=== PATIENT | male | born 1985 | race Caucasian/White ===

== ENCOUNTER 2017-07-05 08:49 | Emergency (ER) | payer OTHER ==
--- NOTE | 2017-07-05 10:37 | ED Physician Documentation ---
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 He did have a reaction at the site of the vaccination with necrosis of the skin consistent with the vaccination working. He was evaluated for that. He has been taking some ibuprofen and this morning he had an episode of chest pain that lasted about 15-20 minutes. He describes the pain is in the central chest not radiating and is now resolved. He is worried that this may be related to his taking of the ibuprofen. He is taking ibuprofen for generalized aches and pains related to this vaccination reaction. Review of Systems Constitutional: reports: Myalgias, Fatigue. denies: Fever Eyes: denies: Decreased vision Ears: denies: Ear pain Nose: denies: Rhinorrhea / runny nose, Congestion Throat: denies: Sore throat Cardiac: reports: Chest pain / pressure. denies: Palpitations, Pedal edema, Calf pain Respiratory: denies: Dyspnea, Cough, Wheezing GI: reports: Diarrhea. denies: Abdominal Pain, Nausea, Vomiting : denies: Dysuria, Frequency Skin: reports: Rash Musculoskeletal: denies: Neck pain, Back pain PD ED PE NORMAL - Vitals Vital signs reviewed: Yes (Hypertensive) - General General: Alert and oriented X 3, No acute distress, Well developed/nourished - HEENT HEENT: Atraumatic, PERRL, EOMI - Neck Neck: Supple, no meningeal sign, No bony TTP - Cardiac Cardiac: RRR, No murmur, No gallop, No rub - Respiratory Respiratory: No respiratory distress, Clear bilaterally - Abdomen Abdomen: Soft, Non tender - Back Back: No CVA TTP, No spinal TTP - Derm Derm: Normal color, Warm and dry, No rash - Extremities Extremities: No deformity, No edema, Other (The injection site has a 2cm round area of superficial tissue necrosis. ) - Neuro Neuro: Alert and oriented X 3, No motor deficit, No sensory deficit, Normal speech Eye Opening: Spontaneous Motor: Obeys Commands Verbal: Oriented GCS Score: 15 - Psych Psych: Normal mood, Normal affect Results - Vitals Vitals: Vital Signs - 24 hr 07/05/17 07/05/17 07/05/17 08:55 10:41 12:44 Temperature 36.6 C Heart Rate 72 65 63 Respiratory 18 22 23 Rate Blood Pressure 136/96 H 120/84 H 126/78 O2 Saturation 100 98 97 07/05/17 07/05/17 14:08 14:10 Temperature Heart Rate 73 62 Respiratory 20 18 Rate Blood Pressure 130/87 H 126/85 H O2 Saturation 99 98 Oxygen O2 Source Room air - EKG (time done) 0859 Rate: Rate (enter#) (72) Rhythm: NSR Ischemia: Normal ST segments Compare to prior EKG: Old EKG unavailable Computer interpretation: Agree with computer - Labs Labs: Laboratory Tests 07/05/17 07/05/17 07/05/17 11:05 11:05 11:05 WBC 8.3 RBC 5.57 Hgb 15.9 Hct 46.0 MCV 82.6 MCH 28.6 MCHC 34.6 RDW 13.4 Plt Count 120 L MPV 7.3 L Neut # 6.1 Lymph # 1.2 L [place] # 0.8 Eos # 0.1 Baso # 0.1 Absolute Nucleated RBC 0.01 Nucleated RBC % 0.2 Sodium 141 Potassium 3.8 Chloride 105 Carbon Dioxide 26 Anion Gap 10.0 BUN 12 Creatinine 0.8 Estimated GFR (MDRD) 114 Glucose 94 Calcium 9.1 Total Bilirubin 1.1 H AST 45 H ALT 19 Alkaline Phosphatase 87 Total Creatine Kinase 394 H CK-MB (CK-2) 33.7 H Troponin I 3.01 H* Total Protein 6.9 Albumin 4.0 Globulin 2.9 Albumin/Globulin Ratio 1.4 Lipase 10 L PD MEDICAL DECISION MAKING - ED course Complexity details: reviewed results, re-evaluated patient, considered differential, d/w patient ED course: 31-year-old male with a reaction to smallpox vaccination which appears to include acute myocarditis. The smallpox vaccination is a live virus vaccination and this is considered a viral myocarditis. Dr. Sanchez the on-call foster parent at [facility] has graciously agreed to accept the patient in transfer. Departure - Departure Disposition: 02 Transfer Acute Care Hosp Clinical Impression: Myocarditis Qualifiers: Myocarditis type: infective Infective myocarditis organism: viral Chronicity: acute Qualified Code(s): I40.0 - Infective myocarditis Condition: Stable Comments: Today in the Emergency Department your blood pressure was elevated. This can happen from the stress of the visit itself, from a current illness or circumstance or from uncontrolled hypertension. If you take blood pressure medications take your usual mediations, have your blood pressure re-checked in an appropriate setting and follow up any elevation with your primary care doctor. Discharge Date/Time: 07/05/17 14:17
[2017-07-05 11:12] LABS: BASOPHILS # (AUTO) 0.1 10^3/uL (0.0-0.1); BASOPHILS % (AUTO) 0.7 %; EOSINOPHILS # (AUTO) 0.1 10^3/uL (0.0-0.7); EOSINOPHILS % (AUTO) 1.7 %; HGB - HEMOGLOBIN 15.9 g/dL (14.0-18.0); LYMPHOCYTES # (AUTO) 1.2 10^3/uL (1.5-3.5); LYMPHOCYTES % (AUTO) 14.2 %; MEAN CORPUSCULAR HEMOGLOBIN 28.6 pg (27.0-31.0); MEAN CORPUSCULAR HGB CONC 34.6 g/dL (32.0-36.0); MEAN CORPUSCULAR VOLUME 82.6 fL (80.0-94.0); MEAN PLATELET VOLUME 7.3 fL (7.4-11.4); MONOCYTES # (AUTO) 0.8 10^3/uL (0.0-1.0); MONOCYTES % (AUTO) 9.9 %; NEUTROPHILS # (AUTO) 6.1 10^3/uL (1.5-6.6); NEUTROPHILS % (AUTO) 73.5 %; NUCLEATED RED BLOOD CELLS AUTO 0.2 /100WBC; RED BLOOD COUNT 5.57 10^6/uL (4.70-6.10); RED CELL DISTRIBUTION WIDTH 13.4 % (12.0-15.0); UNCORRECTED WHITE BLOOD COUNT 8.3 x10^3/uL; WHITE BLOOD COUNT 8.3 x10^3/uL (4.8-10.8)
[2017-07-05 11:24] LABS: ALBUMIN/GLOBULIN RATIO 1.4 (1.0-2.2); BILIRUBIN,TOTAL 1.1 mg/dL (0.2-1.0); CALCIUM 9.1 mg/dL (8.5-10.3); CREATININE 0.8 mg/dL (0.6-1.2); POTASSIUM 3.8 mmol/L (3.5-5.0); TOTAL PROTEIN 6.9 g/dL (6.7-8.2)
[2017-07-05 11:31] LABS: CREATINE KINASE MB 33.7 ng/mL (0.6-6.3)
[2017-07-05 11:33] LABS: TROPONIN I 3.01 ng/mL (<0.49)
[2017-07-05 14:11] VITALS: BP 126/85
== END 2017-07-05 14:17 | disposition short-term general hospital (02) ==
LOC: ED 08:49
DX: I40.0 Infective myocarditis (principal); B97.89 Other viral agents as the cause of diseases classified elsewhere; T88.1XXA Other complications following immunization, not elsewhere classified, initial encounter; R03.0 Elevated blood-pressure reading, without diagnosis of hypertension
CPT/HCPCS: 36415; 80053; 82550; 82553; 83690; 84484; 85025; 93005; 99284

== ENCOUNTER 2017-07-05 14:19 | Outpatient (CLI) | payer OTHER | END 2017-07-05 14:20 | disposition short-term general hospital (02) | LOC: EMS 14:19 | PROVIDERS: ATTEND Surgery | DX: I40.0 Infective myocarditis (principal) | CPT/HCPCS: A0170; A0425; A0428 ==

== ENCOUNTER 2019-02-09 09:00 | Outpatient (CLI) | payer OTHER | END 2019-02-09 09:01 | disposition home or self-care (01) | LOC: DI 09:00 | PROVIDERS: ATTEND Student in an Organized Health Care Education/Training Program | DX: I51.4 Myocarditis, unspecified (principal) | CPT/HCPCS: 93306 ==